=== PATIENT | female | born 2000 | race Caucasian/White ===

== ENCOUNTER 2018-12-03 18:03 | Inpatient (IN) | payer BC ==
[~2018-12-03 18:03] MED LIST: Iopamidol 300 61% 100 ML VIAL FS ONE
[2018-12-03 18:36] LABS: Bilirubin Small (Negative); Blood, Urine Moderate (Negative); Glucose, Urine (Dipstick) Negative (Negative); Leukocyte Moderate (Negative); Nitrite Negative (Negative); Protein, Urine (Dipstick) 100 mg/dL (Neg-Trace)
[2018-12-03 18:39] LABS: Clarity Cloudy (Clear); Pregnancy Test - Urine (BHCG) Negative (Negative); Pregu Control Background? CLEAR/WHITE (CLR/WHITE); Pregu Control Bar Appear? YES (CONTROL BAR)
[2018-12-03 18:42] LABS: Bacteria/HPF 2+ HPF (None Seen); WBC/HPF 21-50 HPF (0-3)
[2018-12-03 18:47] LABS: Hemoglobin 12.2 g/dL (12.0-16.0); Mean Corpuscular HGB CONC 33.4 g/dL (32.0-36.0); Mean Corpuscular Hemoglobin 29.7 pg (25.0-35.0); Mean Corpuscular Volume 88.9 fL (78.0-98.0); Mean Platelet Volume 9.5 fL (7.4-10.4); Platelet Count 161 thou/uL (130-400); RBC Distribution Width 12.3 % (11.5-14.5); Red Blood Cell (RBC) Count 4.12 mill/uL (4.00-5.20); White Blood Cell (WBC) Count 13.5 thou/uL (4.8-10.8)
[2018-12-03] MEDS ORDERED: Sodium Chloride 0.9% 100 ML ONE (18:54)
[2018-12-03] MEDS ORDERED: cefTRIAXone\\ROCEPHIN 2 GM VIAL ONE (18:54)
[2018-12-03 18:56] LABS: ALT (SGPT) 15 U/L (8-55); AST (SGOT) 16 U/L (5-34); Albumin 3.8 g/dL (3.5-5.0); Alkaline Phosphatase 82 U/L (40-100); Anion Gap 16 mmol/L (10-20); BUN (Urea Nitrogen) 13 mg/dL (7.0-18.7); Bilirubin, Total 0.7 mg/dL (0.2-1.2); Calc. Creatinine Clearance 0 mL/min (70-130); Calcium 9.9 mg/dL (7.8-10.44); Carbon Dioxide 27 mmol/L (22-29); Chloride 99 mmol/L (98-107); Estimated GFR-MDRD 64; Globulin 3.6 g/dL (2.4-3.5); Glucose 125 mg/dL (70-105); Potassium 3.5 mmol/L (3.5-5.1); Protein, Total 7.4 g/dL (6.0-8.3); Sodium 138 mmol/L (136-145)
[2018-12-03 19:20] LABS: Band 3 % (5-11); Eosinophils 1 % (0-10); Lymphocytes 4 % (28-48); MDiff Complete? YES; Monocytes 5 % (0-4); Neutrophil 87 % (31-61); Platelet Morphology Comment Appears Adequate; RBC Morphology Normal
--- NOTE | 2018-12-03 20:07 | CT ---
CT ABDOMEN WITH CONTRAST CT PELVIS WITH CONTRAST: DATE: 12/03/2018 HISTORY: 18-year-old female with abdominal pain, fever, nausea, vomiting, chills, and dysuria. COMPARISON: None available TECHNIQUE: IV injection of iodinated contrast media: administered. Oral contrast media:Not administered FINDINGS: The right kidney is ptotic and slightly malrotated. The right nephrogram is very abnormal, with exten sive striations of poor or nonenhancement interspersed with intervening regions of normal enhancement. There is mural enhancement of the right renal pelvis. No hydronephrosis. There is modera te degree of circumferential edema in the right perirenal space extending down the right lower retroperitoneum and right paracolic gutter. There is a small amount of free fluid within the pelvic c avity. There is edema following the branches of the portal vein throughout the left and right lobes of the l iver. No portal vein thrombosis. Hepatic size is at the upper limits of normal or mildly enlarged. There is pericholecystic edema. The left kidney, abdominal aorta, pancreas, adrenals, and spleen, are normal. Urinary bladder is deco mpressed. It is difficult to identify the appendix. No small bowel dilation. Lung bases are grossly clear. No pneumoperitoneum. IMPRESSION: 1) flagrant right pyelonephritis. 2) nonspecific periportal edema in the liver, suggestive of congestion. 3) pericholecystic edema. It is uncertain whether this represents the same process as the periportal edema, or represents a concomitant acute cholecystitis.
[2018-12-03] MEDS ORDERED: Ketorolac Tromethamine 30 MG/ML VIAL ONE (21:20)
[2018-12-03 22:49] VITALS: BMI 24.2
[2018-12-03] MEDS ORDERED: Ondansetron ODT 4 MG TAB SL PRN (22:53)
[2018-12-03] MEDS ORDERED: Ondansetron PF 4 MG/2 ML Vial IVP PRN (22:53)
[2018-12-03] MEDS ORDERED: Sodium Chloride 0.9% 1,000 ML IV SCH (22:53)
[2018-12-03] MEDS: traMADol HCl 50 MG TAB PO PRN (23:33)
[2018-12-03] MEDS: Acetaminophen 325 MG TAB PO PRN (23:33)
[2018-12-03] MEDS: Sodium Chloride 0.9% 1,000 ML IV SCH (23:34)
[2018-12-04] MEDS: Ketorolac Tromethamine 30 MG/ML VIAL IVP PRN ×4 (01:44→22:56)
[2018-12-04 05:59] LABS: Band 17 % (5-11); Hemoglobin 10.4 g/dL (12.0-16.0); Hypochromia SLIGHT = 6-15 cells (100X) (0-5/hpf); Lymphocytes 8 % (28-48); MDiff Complete? YES; Mean Corpuscular HGB CONC 32.3 g/dL (32.0-36.0); Mean Corpuscular Hemoglobin 30.2 pg (25.0-35.0); Mean Corpuscular Volume 93.6 fL (78.0-98.0); Mean Platelet Volume 9.3 fL (7.4-10.4); Neutrophil 75 % (31-61); Platelet Count 129 thou/uL (130-400); Platelet Morphology Comment Appears Adequate; Red Blood Cell (RBC) Count 3.45 mill/uL (4.00-5.20); White Blood Cell (WBC) Count 10.9 thou/uL (4.8-10.8)
[2018-12-04 06:00] LABS: Anion Gap 13 mmol/L (10-20); BUN (Urea Nitrogen) 9 mg/dL (7.0-18.7); Calc. Creatinine Clearance 103 mL/min (70-130); Calcium 7.6 mg/dL (7.8-10.44); Carbon Dioxide 18 mmol/L (22-29); Chloride 106 mmol/L (98-107); Estimated GFR-MDRD 88; Glucose 118 mg/dL (70-105); Potassium 3.8 mmol/L (3.5-5.1); Sodium 133 mmol/L (136-145)
[2018-12-04] MEDS: Acetaminophen 325 MG TAB PO PRN ×2 (06:06→16:00)
[2018-12-04] MEDS: traMADol HCl 50 MG TAB PO PRN ×2 (06:10→11:59)
--- NOTE | 2018-12-04 07:25 | HP ---
PRIMARY CARE DOCTOR: The patient has no PCP. CODE STATUS: Full code. TIME OF EVALUATION: 11:00 p.m. CHIEF COMPLAINT: Abdominal pain. HISTORY OF PRESENT ILLNESS: This is a 18-year-old female patient, with no significant past medical history, came to the hospital, transferred from [place] [facility] after having severe, gradually worsening back pain on the right side, radiating to the abdomen. The pain is diffuse, associated with fever, chills, nausea, and vomiting up to 5-7 times for the past two days, although the patient reported she was also having urinary symptoms for the past week. Initially, she was treated for flu and then after no improvement, she presented to the ER and was treated for sepsis. She presented with tachycardia, fever, and positive BUN. No clear triggers, no alleviating factors. REVIEW OF SYSTEMS: CONSTITUTIONAL: The patient had fever, chills, and generalized weakness. RESPIRATORY: No cough, sputum production, or shortness of breath. CARDIOVASCULAR: No chest pain or palpitation. GASTROINTESTINAL: The patient has nausea and vomiting. No diarrhea. Abdominal pain as described in the HPI. 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 GENITOURINARY: The patient has burning on urination. EXTREMITIES: No leg swelling. All other systems were reviewed and are negative except for the findings mentioned above. PAST MEDICAL HISTORY: Includes kidney stones many years ago. PAST SURGICAL HISTORY: No surgical history. PSYCHIATRIC HISTORY: Includes anxiety. FAMILY HISTORY: Reviewed and noncontributory to current presentation. ALLERGIES: NO KNOWN DRUG ALLERGIES. REPORTED MEDICATIONS: 1. Zoloft. 2. control pills. PHYSICAL EXAMINATION: VITAL SIGNS: On presentation, blood pressure 91/66, with heart rate 141, respiratory rate was 18, temperature 98.3 with oxygen saturation 100% on room air. During the admission, the blood pressure has been fluctuating, sometimes in the lower side, sometimes have improved. The last one during my stay in the room was systolic 95 with MAP of 67. The patient has not had any episode of fever after initial presentation. Antibiotics being given. The heart rate has been sustained in the 120s finally has been coming down to the 110s. CONSTITUTIONAL: The patient is alert and oriented, not in acute distress. HEENT: Eyes normal conjunctiva. Dry oral mucosa. Anicteric. No JVD. RESPIRATORY: Bilateral air entry. No rales. No wheezes. Symmetric expansion that is decreased due to abdominal pain. CARDIOVASCULAR: The patient is tachycardic. Regular rhythm. No murmurs. No gallop. No edema. ABDOMEN: Soft. Not distended. The patient has normal bowel sounds. It is tender diffusely. SKIN: Warm, intact. No pallor. No rash. No redness. Capillary refill seems to be intact. NEURO: No evidence of any new focal weakness. Cranial nerves seems to be intact. PSYCH: The patient is in good mood. No anxiety. Optimal judgment. LABORATORY DATA: EKG was reviewed. The patient has sinus tachycardia at the rate of 126. No other acute findings. Abdomen and pelvis CT was done. 1. The patient has flagrant right pyelonephritis. 2. Nonspecific periportal edema in the liver suggestive of congestion, pericholecystic edema. It is uncertain whether this represents the same process as the periportal edema or represent concomitant acute cholecystitis. Laboratory data reviewed. The patient has sodium 138, potassium 3.5, chloride 99, carbon dioxide 27, anion gap 16, BUN 13, creatinine 1.09, GFR 64, and glucose 125. Lactic acid 1.7, calcium 9.9, and total bilirubin 0.7. LFTs were negative. Troponin was negative. Serum total protein 7.4, albumin 3.8, globulin 3.6, and albumin globulin ratio is 1.1. Hematology; the patient has white count 13.5, hemoglobin 12.2, MCV 88.9, platelet count 161, neutrophils 87, and bands 3. Urine was done and was positive with white count 21-50, rbc's were 11 to 30. ASSESSMENT AND PLAN: The patient will be placed in the hospital with following medical problems. 1. Sepsis. The patient has persistent tachycardia all night long. The patient had fever. On presentation, the patient has leukocytosis, white count more than 13. The patient has received antibiotics, possible source is the urine and is Gram positive. The patient has urinary symptoms. However, in the CAT scan, there is a possibility for acute cholecystitis reported by Radiology. The antibiotic treatment that has been given is already covering this entity. However, if this is ruled in, then surgery might need to be involved. We will follow cultures, adjust as per sensitivity. 2. Urinary tract infection as seen on the urine. The patient has urinary symptoms for a couple of weeks. Treatment as above. 3. Possible acute cholecystitis needs to be ruled out. Treatment as above. 4. Intractable pain, has been improving overnight. Continue with pain management. 5. Hyperglycemia. The patient has no history of diabetes. This is likely secondary to acute distress and infection. We will monitor and treat accordingly. No need for any further intervention. 6. Right-sided pyelonephritis seen on the CAT scan, concomitant with urinary symptoms and sepsis and SIRS signs. Treatment as above. Job ID: [id number]
--- NOTE | 2018-12-04 08:24 | RAD ---
SINGLE VIEW OF THE CHEST: COMPARISON: None. HISTORY: Chest pain and shortness of breath. FINDINGS: Single view of the chest shows a normal sized cardiomediastinal silhouette. There is no evidence of c onsolidation, mass, or pleural effusion. The bones are unremarkable. IMPRESSION: No evidence of acute cardiopulmonary disease. POS: CET
[2018-12-04] MEDS: Enoxaparin Sodium 40 MG/0.4 ML SYRINGE SC SCH (09:03)
[2018-12-04] MEDS: Sodium Chloride 0.9% 1,000 ML IV SCH ×2 (09:03→16:00)
--- NOTE | 2018-12-04 09:42 | ULT ---
GALLBLADDER ULTRASOUND: HISTORY: Right upper quadrant pain. Real-time imaging of the right upper quadrant shows some sludge within the gallbladder. Gallbladder wall is very thickened measuring greater than a centimeter on some of these images. No gallstones ar e identified. The common duct is in the 6 mm range. Pancreas region appears unremarkable. The righ t kidney is not obstructed. It is of mild increased echogenicity. IMPRESSION: 1. Marked gallbladder wall thickening. Minimal sludge and no stones are identified. Common duct is upper limits at 6 mm. 2. Mild increased echogenicity to the cortex of the right kidney. No obstruction. 3. The changes of the gallbladder could certainly be on the basis of a cholecystitis. The possibili ty that this is related to liver disease would also be a consideration. Clinical correlation is adrián wang. POS: TPC
[2018-12-04] MEDS: Ampicillin/Sulbactam 1.5 GM in Sodium Chloride 0.9% 100 ML IVPB SCH ×3 (13:26→22:57)
--- NOTE | 2018-12-04 17:27 | PDOC.HOSPP ---
- Subjective Encounter Date: 12/04/18 Encounter Time: 13:00 Subjective: pt up in bed complains of pain all over and sob - Objective Vital Signs & Weight: Vital Signs (12 hours) Temp Pulse Ox 12/04/18 15:35 99.0 F 12/04/18 11:36 98.0 F 12/04/18 07:50 96 12/04/18 07:19 98.3 F Weight Admit Weight 132 lb 7.965 oz Weight 132 lb 7.965 oz Most Recent Monitor Data Heart Rate from ECG 118 NIBP 115/81 NIBP BP-Mean 92 Respiration from ECG 40 SpO2 96 I&O: 12/03/18 12/04/18 12/05/18 06:59 06:59 06:59 Intake Total 5028 Output Total 450 Balance 4578 Result Diagrams: 12/04/18 05:33 12/04/18 05:33 Hospitalist ROS - Review of Systems Respiratory: reports: shortness of breath Cardiovascular: denies: chest pain, palpitations, orthopnea, paroxysmal noc. dyspnea, edema, light headedness, other Gastrointestinal: reports: abdominal pain. denies: nausea, vomiting, diarrhea, constipation, melena, hematochezia, other Genitourinary: denies: dysuria, frequency, incontinence, hematuria, retention, other - Medication Medications: Active Medications Generic Name Dose Route Start Last Admin Trade Name Freq PRN Reason Stop Dose Admin Acetaminophen 650 mg 12/03/18 23:26 12/04/18 16:00 Tylenol PO 650 mg Q6H PRN Administration Fever/Mild Pain Enoxaparin Sodium 40 mg 12/04/18 09:00 12/04/18 09:03 Lovenox SC Not Given 0900 [facility] Ampicillin Sodium/Sulbactam 100 mls @ 200 mls/hr 12/04/18 12:00 12/04/18 17: 14 Sodium 1.5 gm/ Sodium Chloride IVPB 100 mls Q6HR PACO Administration Sodium Chloride 1,000 mls @ 75 mls/hr 12/04/18 16:00 12/04/18 16:00 Normal Saline 0.9% IV 1,000 mls .[id number] PACO Administration Ketorolac Tromethamine 30 mg 12/04/18 01:36 12/04/18 09:01 Toradol IVP 12/09/18 01:37 30 mg Q6H PRN Administration Pain Sodium Chloride 10 ml 12/04/18 09:00 12/04/18 09:02 Flush - Normal Saline IVF 10 ml Q12HR PACO Administration Sodium Chloride 10 ml 12/03/18 22:53 12/04/18 13:27 Flush - Normal Saline IVF 10 ml PRN PRN Administration Saline Flush Tramadol HCl 50 mg 12/03/18 23:26 12/04/18 11:59 Ultram PO 50 mg Q6H PRN Administration Moderate Pain (4-6) - Exam Neck: negative: supple, symmetric, no JVD, no thyromegaly, no lymphadenopathy, no carotid bruit, JVD Respiratory - other findings: decreased breath sound to right lower lung Gastrointestinal: soft, tender to palpation Gastrointestinal - other findings: all over Hosp A/P (1) Sepsis Code(s): A41.9 - SEPSIS, UNSPECIFIED ORGANISM Status: Acute (2) Pyelonephritis Code(s): N12 - TUBULO-INTERSTITIAL NEPHRITIS, NOT SPCF ACUTE OR CHRONIC Status: Acute (3) SOB (shortness of breath) Code(s): R06.02 - SHORTNESS OF BREATH Status: Acute (4) Leukocytosis Code(s): D72.829 - ELEVATED WHITE BLOOD CELL COUNT, UNSPECIFIED Status: Acute - Plan pt's ct and RUQ ultrasound sound indicates some fluid around gall bladder. she also has decreased breath sounds to her right lung and has pyelonephritis on right kidney. lfts normal. i have changed her abx to unsayn. urine cx indicates ecoli. blood cx pending. will order a IS. if her symptoms do on improve may need a HIDA scan.
[2018-12-04] MEDS ORDERED: cefTRIAXone\\ROCEPHIN 1 GM in Sodium Chloride 0.9% 100 ML IVPB SCH (19:00)
[2018-12-05] MEDS: cefTRIAXone\\ROCEPHIN 1 GM in Sodium Chloride 0.9% 100 ML IVPB SCH (01:59)
[2018-12-05] MEDS: Sodium Chloride 0.9% 1,000 ML IV SCH (02:00)
[2018-12-05] MEDS: ALPRAZolam 0.25 MG TAB PO PRN ×2 (02:40→22:14)
[2018-12-05] MEDS: Ketorolac Tromethamine 30 MG/ML VIAL IVP PRN ×2 (08:40→16:44)
[2018-12-05] MEDS: Enoxaparin Sodium 40 MG/0.4 ML SYRINGE SC SCH (08:41)
--- NOTE | 2018-12-05 11:11 | PDOC.HOSPP ---
- Subjective Encounter Date: 12/05/18 Encounter Time: 11:09 Subjective: Ms. Allen was seen today in follow-up of pyelonephritis. She says she is feeing a little better. She still continues to have soreness all over. She also has some right flank pain. - Objective Vital Signs & Weight: Vital Signs (12 hours) Temp Pulse Resp Pulse Ox 12/05/18 10:37 97.7 F 12/05/18 08:00 93 L 12/05/18 07:00 99.6 F 12/05/18 03:43 98.2 F 12/05/18 02:48 97 12/05/18 02:42 119 H 14 97 12/04/18 23:57 97.7 F Weight Admit Weight 132 lb 7.965 oz Weight 132 lb 7.965 oz Most Recent Monitor Data Heart Rate from ECG 110 NIBP 108/72 NIBP BP-Mean 84 Respiration from ECG 32 SpO2 93 I&O: 12/04/18 12/05/18 12/06/18 06:59 06:59 06:59 Intake Total 5028 3359 Output Total 450 1550 Balance 4578 1809 Result Diagrams: 12/04/18 05:33 12/04/18 05:33 Hospitalist ROS - Medication Medications: Active Medications Generic Name Dose Route Start Last Admin Trade Name Freq PRN Reason Stop Dose Admin Acetaminophen 650 mg 12/03/18 23:26 12/04/18 16:00 Tylenol PO 650 mg Q6H PRN Administration Fever/Mild Pain Alprazolam 0.25 mg 12/05/18 02:36 12/05/18 02:40 Xanax PO 0.25 mg Q12H PRN Administration Anxiety Enoxaparin Sodium 40 mg 12/04/18 09:00 12/05/18 08:41 Lovenox SC 40 mg 0900 PACO Administration Sodium Chloride 1,000 mls @ 75 mls/hr 12/04/18 16:00 12/05/18 02:00 Normal Saline 0.9% IV 1,000 mls .[id number] PACO Administration Ceftriaxone Sodium 1 gm/ 100 mls @ 200 mls/hr 12/05/18 02:00 12/05/18 01:59 Sodium Chloride IVPB 100 mls Q24HR@0200 PACO Administration Ketorolac Tromethamine 30 mg 12/04/18 01:36 12/05/18 08:40 Toradol IVP 12/09/18 01:37 30 mg Q6H PRN Administration Pain Sodium Chloride 10 ml 12/04/18 09:00 12/05/18 08:41 Flush - Normal Saline IVF 10 ml Q12HR PACO Administration Sodium Chloride 10 ml 12/03/18 22:53 12/04/18 18:04 Flush - Normal Saline IVF 10 ml PRN PRN Administration Saline Flush Tramadol HCl 50 mg 12/03/18 23:26 12/04/18 11:59 Ultram PO 50 mg Q6H PRN Administration Moderate Pain (4-6) - Exam Eye: PERRL, anicteric sclera ENT: normocephalic atraumatic, no oropharyngeal lesions Heart: RRR, no murmur, no gallops, no rubs, normal peripheral pulses Respiratory: CTAB, no wheezes, no rales, no ronchi, normal chest expansion Gastrointestinal: soft, non-tender, non-distended, normal bowel sounds, no palpable masses, no hepatomegaly, no splenomegaly Extremities: no cyanosis, no clubbing, no edema Psychiatric: normal affect, normal behavior, A&O x 3 Hosp A/P (1) Pyelonephritis Code(s): N12 - TUBULO-INTERSTITIAL NEPHRITIS, NOT SPCF ACUTE OR CHRONIC Status: Acute (2) Sepsis Code(s): A41.9 - SEPSIS, UNSPECIFIED ORGANISM Status: Acute - Plan * Acute Pyelonephritis with sepsis- she is slowly improving * Urine culture is growing E. coli which is sensitive to Rocephin- will continue * Cholecystitis is less likely. * Will continue to monitor in the hospital * Will need to ambulate
[2018-12-05] MEDS: traMADol HCl 50 MG TAB PO PRN ×2 (13:02→22:14)
[2018-12-05 18:02] LABS: Anion Gap 13 mmol/L (10-20); BUN (Urea Nitrogen) 13 mg/dL (7.0-18.7); Calc. Creatinine Clearance 103 mL/min (70-130); Calcium 8.2 mg/dL (7.8-10.44); Carbon Dioxide 18 mmol/L (22-29); Chloride 108 mmol/L (98-107); Estimated GFR-MDRD 88; Glucose 119 mg/dL (70-105); Potassium 3.7 mmol/L (3.5-5.1); Sodium 135 mmol/L (136-145)
--- NOTE | 2018-12-05 20:04 | CON ---
DATE OF CONSULTATION: 12/05/2018 HISTORY OF PRESENT ILLNESS: Tracy Allen is a 18-year-old female, who has had urinary tract symptoms for couple of weeks. She was admitted to the hospital early yesterday morning. CT scanning of her abdomen showed a very inflamed right kidney. There is some pericholecystic fluid. She subsequently was admitted with a diagnosis of pyelonephritis. E coli was isolated from the urine. Fortunately, her blood cultures are negative. She was switched to Unasyn yesterday, but switched back when sensitivities came back, the E coli was resistant to Unasyn. She did complain of a heavy feeling last night in her chest. Chest x-ray done yesterday before symptoms is unremarkable. PAST MEDICAL HISTORY: Unremarkable. FAMILY HISTORY: Negative for lung disease in early age. OBJECTIVE: VITAL SIGNS: Afebrile. Heart rate is in the one teens. Oximetry is 93% to 97%, respiratory rate is 14, blood pressure 108/72. Intake and outputs positive 1809, positive 4578 today before. HEAD AND NECK: Unremarkable. She has fine crackles of both lung bases. HEART: Regular rhythm. No S3. ABDOMEN: Nontender. EXTREMITIES: Without clubbing, cyanosis, or edema. IMPRESSION: 1. Pyelonephritis without bacteremia. 2. Probable early clinical sepsis. 3. Status post large volume resuscitation leading to her complaints of dyspnea with third-spacing, likely in her lungs and peripherally. PLAN: I would not recommend at this point giving her diuretics and she still has resting tachycardia. I met with mom and answered all of her questions. Check a chest x-ray in the morning. I suspect she will continue to improve. She says she does feel significantly better than she did on presentation. I suspect she probably has a component of ARDS with her pyelonephritis, should gradually resolve spontaneously and may not require any diuresis. Critical care time is 35 minutes. Job ID: [id number] MTDD
[2018-12-06] MEDS: cefTRIAXone\\ROCEPHIN 1 GM in Sodium Chloride 0.9% 100 ML IVPB SCH (02:54)
[2018-12-06] MEDS: Sodium Chloride 0.9% 1,000 ML IV SCH (02:55)
[2018-12-06] MEDS: Acetaminophen 325 MG TAB PO PRN ×2 (04:28→11:45)
[2018-12-06 04:58] LABS: Band 14 % (5-11); Elliptocytes SLIGHT = 2-5 cells (100X) (0-1/hpf); Hemoglobin 10.5 g/dL (12.0-16.0); Lymphocytes 5 % (28-48); MDiff Complete? YES; Mean Corpuscular HGB CONC 33.6 g/dL (32.0-36.0); Mean Corpuscular Hemoglobin 30.8 pg (25.0-35.0); Mean Corpuscular Volume 91.7 fL (78.0-98.0); Mean Platelet Volume 8.7 fL (7.4-10.4); Monocytes 8 % (0-4); Neutrophil 73 % (31-61); Platelet Count 206 thou/uL (130-400); Platelet Morphology Comment Appears Adequate; RBC Distribution Width 12.5 % (11.5-14.5); Red Blood Cell (RBC) Count 3.41 mill/uL (4.00-5.20); White Blood Cell (WBC) Count 14.1 thou/uL (4.8-10.8)
[2018-12-06 05:03] LABS: Anion Gap 12 mmol/L (10-20); BUN (Urea Nitrogen) 15 mg/dL (7.0-18.7); Calc. Creatinine Clearance 101 mL/min (70-130); Calcium 8.1 mg/dL (7.8-10.44); Carbon Dioxide 19 mmol/L (22-29); Chloride 107 mmol/L (98-107); Estimated GFR-MDRD 86; Glucose 97 mg/dL (70-105); Potassium 3.9 mmol/L (3.5-5.1); Sodium 134 mmol/L (136-145)
[2018-12-06] MEDS ORDERED: Sodium Chloride 0.9% 1,000 ML IV SCH (07:11)
[2018-12-06] MEDS ORDERED: Furosemide 20 MG/2 ML VIAL SLOW IVP SCH (07:15)
[2018-12-06] MEDS: Enoxaparin Sodium 40 MG/0.4 ML SYRINGE SC SCH (08:09)
--- NOTE | 2018-12-06 09:23 | PDOC.HOSPP ---
- Subjective Encounter Date: 12/06/18 Encounter Time: 09:21 Subjective: Ms. Allen was seen today in follow-up of Pyelonephritis due to Ecoli. She says she is beginning to feel better. She had some dyspnea last night, but is improving. She was able to eat yesterday without nausea and vomiting. - Objective Vital Signs & Weight: Vital Signs (12 hours) Temp 12/06/18 07:00 98.2 F 12/06/18 04:59 99 F 12/06/18 03:51 98.4 F 12/06/18 03:00 98.4 F 12/05/18 23:48 98.8 F Weight Admit Weight 132 lb 7.965 oz Weight 132 lb 7.965 oz Most Recent Monitor Data Heart Rate from ECG 114 NIBP 114/74 NIBP BP-Mean 87 Respiration from ECG 16 SpO2 92 I&O: 12/05/18 12/06/18 12/07/18 06:59 06:59 06:59 Intake Total 3359 1600 Output Total 1550 1050 Balance 1809 550 Result Diagrams: 12/06/18 03:59 12/06/18 03:59 Hospitalist ROS - Medication Medications: Active Medications Generic Name Dose Route Start Last Admin Trade Name Freq PRN Reason Stop Dose Admin Acetaminophen 650 mg 12/03/18 23:26 12/06/18 04:28 Tylenol PO 650 mg Q6H PRN Administration Fever/Mild Pain Alprazolam 0.25 mg 12/05/18 02:36 12/05/18 22:14 Xanax PO 0.25 mg Q12H PRN Administration Anxiety Enoxaparin Sodium 40 mg 12/04/18 09:00 12/06/18 08:09 Lovenox SC 40 mg 0900 PACO Administration Ceftriaxone Sodium 1 gm/ 100 mls @ 200 mls/hr 12/05/18 02:00 12/06/18 02:54 Sodium Chloride IVPB 100 mls Q24HR@0200 PACO Administration Ketorolac Tromethamine 30 mg 12/04/18 01:36 12/05/18 16:44 Toradol IVP 12/09/18 01:37 30 mg Q6H PRN Administration Pain Sodium Chloride 10 ml 12/04/18 09:00 12/06/18 08:09 Flush - Normal Saline IVF Not Given Q12HR PACO Sodium Chloride 10 ml 12/03/18 22:53 12/05/18 16:56 Flush - Normal Saline IVF 10 ml PRN PRN Administration Saline Flush Tramadol HCl 50 mg 12/03/18 23:26 12/05/18 22:14 Ultram PO 50 mg Q6H PRN Administration Moderate Pain (4-6) - Exam Eye: PERRL, anicteric sclera Heart: RRR, no murmur, no gallops, no rubs, normal peripheral pulses Respiratory: CTAB (but decreased breath sounds in the right base), no wheezes, no rales, no ronchi, normal chest expansion Gastrointestinal: soft, non-distended, normal bowel sounds, no palpable masses, no hepatomegaly, no splenomegaly, no bruit, no guarding, no rigidity, tender to palpation (+ right mid and lower abdominal tebderness) Extremities: no cyanosis, no clubbing, 1+ LE edema (+ mild ankle edema) Hosp A/P (1) Pyelonephritis Code(s): N12 - TUBULO-INTERSTITIAL NEPHRITIS, NOT SPCF ACUTE OR CHRONIC Status: Acute (2) Sepsis Code(s): A41.9 - SEPSIS, UNSPECIFIED ORGANISM Status: Acute - Plan * Acute Pyelonephritis with sepsis- she continues to improve * Urine culture is growing E. coli which is sensitive to Rocephin- will continue * Dyspnea- mild respiratory failure- could be mild ARDS vs. volume overload from fluid resuscitation * Echo has been ordered * Continue to ambulate
--- NOTE | 2018-12-06 12:17 | RAD ---
PORTABLE AP CHEST: Date: 12/06/18 HISTORY: ARDS. COMPARISON: 12/04/18. FINDINGS: There has been interval development of dense area of consolidation and opacity at the right lung base with interval development of blunting of the left lateral costophrenic angle and patchy parenchymal densities within the left mid lung zone and left lung base. The opacities in the mid lung zones and e ach lung base obscure the cardiac silhouette. The pulmonary vasculature is within normal limits. IMPRESSION: Interval development of parenchymal opacities in the mid lung zones and at each lung base with associ ated bilateral pleural effusions. Parenchymal opacity is much greater at the right lung base. Finding s may be related to development of bilateral multifocal pneumonia or possibly asymmetric pulmonary ed beryl with associated bilateral pleural effusions. Follow-up to complete resolution is recommended. POS: OFF
[2018-12-06] MEDS: Ketorolac Tromethamine 30 MG/ML VIAL IVP PRN (17:31)
--- NOTE | 2018-12-06 18:42 | PRG ---
DATE OF SERVICE: 12/06/2018 SUBJECTIVE: Tracy Statum says she is feeling better today. She still has a heavy feeling in her chest. OBJECTIVE: VITAL SIGNS: Heart rate is 98, blood pressure 134/91, and respiratory rate is in the high 20s. LUNGS: This morning, lungs remarkable for crackles on both lung bases. HEART: Regular rhythm. ABDOMEN: Soft. She does not have the flank tenderness. She is having her right abdominal exam is less tender than yesterday. LABORATORY DATA: White count 14.1, hemoglobin 10.5, platelets 206,000. Sodium 134, potassium 3.9, chloride 107, bicarb 19, BUN 15, and creatinine 0.84. Anion gap is 8. Chest radiograph shows patchy bilateral alveolar infiltrates. IMPRESSION: Pyelonephritis with acute respiratory distress syndrome, it is mild. She will probably do well with just one dose of Lasix today. This clinically does not clear that a picture of pneumonia. I suspect with diuretics. She will improve significantly. We will continue to follow. Job ID: [id number]
[2018-12-06] MEDS: traMADol HCl 50 MG TAB PO PRN (22:27)
[2018-12-06] MEDS: ALPRAZolam 0.25 MG TAB PO PRN (22:27)
[2018-12-07] MEDS: Ketorolac Tromethamine 30 MG/ML VIAL IVP PRN ×2 (02:19→22:10)
[2018-12-07] MEDS: Acetaminophen 325 MG TAB PO PRN ×2 (02:23→19:54)
[2018-12-07] MEDS: cefTRIAXone\\ROCEPHIN 1 GM in Sodium Chloride 0.9% 100 ML IVPB SCH (02:24)
[2018-12-07 05:38] LABS: Anion Gap 13 mmol/L (10-20); BUN (Urea Nitrogen) 14 mg/dL (7.0-18.7); Calc. Creatinine Clearance 117 mL/min (70-130); Calcium 7.6 mg/dL (7.8-10.44); Carbon Dioxide 21 mmol/L (22-29); Chloride 104 mmol/L (98-107); Estimated GFR-MDRD Greater than 90; Glucose 84 mg/dL (70-105); Potassium 3.1 mmol/L (3.5-5.1); Sodium 135 mmol/L (136-145)
[2018-12-07 06:12] LABS: Band 16 % (5-11); Hemoglobin 9.4 g/dL (12.0-16.0); Lymphocytes 17 % (28-48); MDiff Complete? YES; Mean Corpuscular HGB CONC 33.9 g/dL (32.0-36.0); Mean Corpuscular Hemoglobin 30.9 pg (25.0-35.0); Mean Corpuscular Volume 91.2 fL (78.0-98.0); Mean Platelet Volume 8.9 fL (7.4-10.4); Monocytes 4 % (0-4); Neutrophil 63 % (31-61); Platelet Count 171 thou/uL (130-400); Platelet Morphology Comment Appears Adequate; RBC Distribution Width 12.5 % (11.5-14.5); Red Blood Cell (RBC) Count 3.05 mill/uL (4.00-5.20); White Blood Cell (WBC) Count 11.8 thou/uL (4.8-10.8)
[2018-12-07] MEDS ORDERED: Furosemide 20 MG/2 ML VIAL SLOW IVP SCH (08:00)
[2018-12-07] MEDS ORDERED: Potassium Chloride 20 MEQ TAB PO SCH ×2 (09:15→15:45)
[2018-12-07] MEDS: Enoxaparin Sodium 40 MG/0.4 ML SYRINGE SC SCH (09:54)
--- NOTE | 2018-12-07 15:28 | PDOC.HOSPP ---
- Subjective Encounter Date: 12/07/18 Encounter Time: 09:40 Subjective: Ms. Allen was seen today in follow-up of Pyelonephritis. She says she still feels very tired, and notes dyspnea when she walks a few steps in the room. The abdominal pain has improved, and she has been able to keep all her meals down yesterday, and this morning. - Objective Vital Signs & Weight: Vital Signs (12 hours) Temp Pulse Ox 12/07/18 08:00 97 12/07/18 07:17 96.5 F L 12/07/18 03:42 99.6 F Weight Admit Weight 132 lb 7.965 oz Weight 2.123 oz Most Recent Monitor Data Heart Rate from ECG 81 NIBP 122/89 NIBP BP-Mean 100 Respiration from ECG 34 SpO2 96 I&O: 12/06/18 12/07/18 12/08/18 06:59 06:59 06:59 Intake Total 1600 775 Output Total 1050 1700 Balance 550 -925 Result Diagrams: 12/07/18 04:37 12/07/18 04:37 Hospitalist ROS - Medication Medications: Active Medications Generic Name Dose Route Start Last Admin Trade Name Freq PRN Reason Stop Dose Admin Acetaminophen 650 mg 12/03/18 23:26 12/07/18 02:23 Tylenol PO 650 mg Q6H PRN Administration Fever/Mild Pain Alprazolam 0.25 mg 12/05/18 02:36 12/06/18 22:27 Xanax PO 0.25 mg Q12H PRN Administration Anxiety Enoxaparin Sodium 40 mg 12/04/18 09:00 12/07/18 09:54 Lovenox SC 40 mg 0900 PACO Administration Ceftriaxone Sodium 1 gm/ 100 mls @ 200 mls/hr 12/05/18 02:00 12/07/18 02:24 Sodium Chloride IVPB 100 mls Q24HR@0200 PACO Administration Ketorolac Tromethamine 30 mg 12/04/18 01:36 12/07/18 02:19 Toradol IVP 12/09/18 01:37 30 mg Q6H PRN Administration Pain Sodium Chloride 10 ml 12/04/18 09:00 12/07/18 09:54 Flush - Normal Saline IVF 10 ml Q12HR PACO Administration Sodium Chloride 10 ml 12/03/18 22:53 12/05/18 16:56 Flush - Normal Saline IVF 10 ml PRN PRN Administration Saline Flush Tramadol HCl 50 mg 12/03/18 23:26 12/06/18 22:27 Ultram PO 50 mg Q6H PRN Administration Moderate Pain (4-6) - Exam Eye: PERRL, anicteric sclera ENT: normocephalic atraumatic, no oropharyngeal lesions Heart: RRR, no murmur, no gallops, no rubs, normal peripheral pulses Respiratory: no wheezes (but coarse breath sounds some rales at the bases), no ronchi, normal chest expansion Gastrointestinal: soft, non-tender, non-distended, normal bowel sounds, no palpable masses, no hepatomegaly, no splenomegaly, no bruit, no guarding Extremities: no cyanosis, no clubbing, no edema Psychiatric: normal affect, normal behavior, A&O x 3 Hosp A/P (1) Pyelonephritis Code(s): N12 - TUBULO-INTERSTITIAL NEPHRITIS, NOT SPCF ACUTE OR CHRONIC Status: Acute (2) Sepsis Code(s): A41.9 - SEPSIS, UNSPECIFIED ORGANISM Status: Acute - Plan * Acute Pyelonephritis with sepsis- she continues with slow improvement * Urine culture is growing E. coli which is sensitive to Rocephin- will continue * Mild ARDS- continue oxygen supplementation, and encourage ambulation, and incentive spirometry * Will continue to monitor in the hospital
[2018-12-07] MEDS ORDERED: Sodium Chloride 0.65% Nasal 44 ML BOT EA NARE PRN (15:44)
--- NOTE | 2018-12-07 16:21 | PRG ---
DATE OF SERVICE: 12/07/2018 SERVICE: Pulmonary Medicine. INTERVAL HISTORY: The patient is doing fine from respiratory standpoint. She had a little bit of a coughing yesterday and woke up twice last night with dyspnea. That being said, seems to be slightly improved as the day is gone by today. She denies any fevers or chills. There were no significant overnight events otherwise. The sputum that she brings up is a frothy white color and perhaps has a touch of a pale yellow character to it. PHYSICAL EXAMINATION: VITAL SIGNS: Afebrile with a T-max overnight of 100.4. Pulse 81, blood pressure 122/89, respirations 34, saturation 96% on 3 L nasal cannula. GENERAL: The patient is awake and alert, in no apparent distress. LUNGS: Decent air entry. Crackles are present. HEART: Normal rate and regular. ABDOMEN: Soft, nontender, and nondistended. Bowel sounds are positive. MUSCULOSKELETAL: No cyanosis or clubbing. There is 1+ pitting in the bilateral lower extremities. NEUROLOGIC: Grossly nonfocal. LABORATORY DATA: WBC 11.8, hemoglobin 9.4 and downtrending, platelets 171,000. Basic metabolic profile is unremarkable except for potassium of 3.1. Sodium is uptrending to 135. Previous LFTs and lipase were unremarkable. Urinalysis was positive for pyuria. Significant gram-negative rods were identified, which turned out to be E coli. This is a fairly sensitive species. Blood cultures x2 are negative. IMAGIN. Echocardiogram shows normal ejection fraction with trace valvular abnormalities. Minimally elevated right ventricular systolic pressure is present. 2. Chest x-ray demonstrates multifocal infiltrates and bilateral effusions, consistent with volume overload. The apical regions are spared. This has the appearance of cardiogenic pulmonary edema. ARDS, however, cannot be entirely excluded. Cardiac silhouette is generous, though it is an AP film. 3. CT of the abdomen and pelvis demonstrates florid pyelonephritis. ASSESSMENT: 1. Sepsis without end-organ damage. 2. Acute hypoxic respiratory failure, hopefully secondary to volume resuscitation. 3. Bilateral pulmonary infiltrates and pleural effusions. DISCUSSION AND PLAN: We will continue to diurese the patient down to euvolemia. I will give her a total of 80 mEq of potassium today. I will check a magnesium tomorrow morning. We will repeat chest x-ray in the morning. Her oxygen requirement seemed to be improving slightly. As such, no changes to our current management will be performed. We will continue her antibiotics directed at her E coli, which was identified in the urine. Job ID: [id number]
[2018-12-07] MEDS: ALPRAZolam 0.25 MG TAB PO PRN (22:10)
[2018-12-08] MEDS: cefTRIAXone\\ROCEPHIN 1 GM in Sodium Chloride 0.9% 100 ML IVPB SCH (02:43)
[2018-12-08] MEDS: traMADol HCl 50 MG TAB PO PRN (02:54)
[2018-12-08 07:08] LABS: #Basophils 0.1 thou/uL (0.0-0.2); #Eosinphils 0.3 thou/uL (0.0-0.7); #Lymphocytes 2.2 thou/uL (1.20-3.40); #Monocytes 0.8 thou/uL (0.11-0.59); #Neutrophils 9.7 thou/uL (1.40-6.50); %Basophils 0.6 % (0.0-1.0); %Eosinophils 2.3 % (0.0-10.0); %Monocytes 6.3 % (0.0-4.0); %Neutrophils 73.8 % (31.0-61.0); Hemoglobin 10.2 g/dL (12.0-16.0); Mean Corpuscular HGB CONC 33.2 g/dL (32.0-36.0); Mean Corpuscular Hemoglobin 30.4 pg (25.0-35.0); Mean Corpuscular Volume 91.5 fL (78.0-98.0); Mean Platelet Volume 7.8 fL (7.4-10.4); Platelet Count 237 thou/uL (130-400); RBC Distribution Width 12.6 % (11.5-14.5); Red Blood Cell (RBC) Count 3.36 mill/uL (4.00-5.20); White Blood Cell (WBC) Count 13.1 thou/uL (4.8-10.8)
[2018-12-08 07:27] LABS: Anion Gap 14 mmol/L (10-20); BUN (Urea Nitrogen) 12 mg/dL (7.0-18.7); Calc. Creatinine Clearance 122 mL/min (70-130); Calcium 7.6 mg/dL (7.8-10.44); Carbon Dioxide 20 mmol/L (22-29); Chloride 105 mmol/L (98-107); Estimated GFR-MDRD Greater than 90; Glucose 78 mg/dL (70-105); Magnesium 1.7 mg/dL (1.7-2.2); Potassium 3.8 mmol/L (3.5-5.1); Sodium 135 mmol/L (136-145)
[2018-12-08] MEDS ORDERED: Magnesium Sulfate 4 GM in Sodium Chloride 0.9% 250 ML 250 ML IVPB SCH (08:45)
[2018-12-08] MEDS ORDERED: Potassium Chloride 20 MEQ TAB PO SCH (08:45)
[2018-12-08] MEDS ORDERED: Furosemide 20 MG/2 ML VIAL SLOW IVP SCH (08:45)
[2018-12-08] MEDS: Enoxaparin Sodium 40 MG/0.4 ML SYRINGE SC SCH (09:18)
--- NOTE | 2018-12-08 09:55 | RAD ---
CHEST TWO VIEWS: INDICATIONS: Follow up infiltrates. COMPARISON: 12/06/2018 FINDINGS: Bibasilar infiltrates and bilateral effusions are again noted. There may be some mild improvement in the density and extent of the infiltrates when compared to the portable film of 12/06/2018, although comparison is suboptimal due to differences in technique and the previous was a portable projection. IMPRESSION: Persistent bibasilar infiltrates and bilateral effusions. POS: [facility]
--- NOTE | 2018-12-08 10:07 | PRG ---
DATE OF SERVICE: 12/08/2018 SERVICE: Pulmonary Medicine. INTERVAL HISTORY: The patient is doing better from respiratory standpoint. She is on less oxygen. Her saturations are being maintained at 97%. That being said, she woke up with a coughing fit yesterday night. It took her breath for period of time, but she has settled back down fairly comfortably. This morning, she had additional coughing fit. She actually got choked up on some mucus, which induced a vomiting spell, but she denies having any specific nausea. She has a good appetite still. Otherwise, there are no significant overnight events. PHYSICAL EXAMINATION: VITAL SIGNS: Afebrile. Pulse 80, blood pressure 117/92, respirations 30, and saturation 97% on 1.5 L nasal cannula. GENERAL: The patient is awake and alert, in no apparent distress. LUNGS: Decent air entry with dependent crackles noted. HEART: Normal rate and regular. ABDOMEN: Soft, nontender, and nondistended. Bowel sounds are positive. MUSCULOSKELETAL: No cyanosis or clubbing. There is trace pitting in bilateral lower extremities, which seems to be slightly improved. NEUROLOGIC: Grossly nonfocal. LABORATORY DATA: WBC 13.1, hemoglobin 10.2, platelets 237,000. Sodium 135. Basic metabolic profile is otherwise unremarkable. Potassium is improved to 3.8, and magnesium remains at 1.7. Urinalysis is positive for E. coli, growing fairly sensitive organism. IMAGING: Chest x-ray demonstrates significant improvement in aeration throughout bilateral lung welch. I cannot see the bilateral diaphragms. There is less pleural effusion present. ASSESSMENT: 1. Acute hypoxic respiratory failure, improving. 2. Sepsis without end-organ damage, resolving. 3. Urinary tract infection/pyelonephritis secondary to Escherichia coli, improving. 4. Bilateral pulmonary infiltrates and pleural effusions, improving. DISCUSSION AND PLAN: My suspicion is that her hypoxic failure secondary to volume resuscitation. Clinically and radiographically, she seems to be making improvements over the last 24 to 48 hours. I will give her an additional dose of potassium, magnesium, and Lasix today. I will put her briefly on a course of CPAP to see whether or not we can help mobilize fluid from the lungs. Pulmonary/Critical Care will follow along. She should remain in this location until she has less difficulty mobilizing. Job ID: [id number]
[2018-12-08] MEDS: Ketorolac Tromethamine 30 MG/ML VIAL IVP PRN ×2 (15:23→22:15)
[2018-12-08 15:55] VITALS: BP 121/61
--- NOTE | 2018-12-08 17:40 | PDOC.HOSPP ---
- Subjective Encounter Date: 12/08/18 Encounter Time: 10:00 Subjective: Ms. Allen was seen today in follow-up of pyelonephritis with sepsis. She is still feeling weak. She also continues to have difficulty breathing. - Objective Vital Signs & Weight: Vital Signs (12 hours) Temp Pulse Pulse Pulse Resp BP BP 12/08/18 15:00 97.9 F 12/08/18 13:30 81 88 121/61 134/98 H 12/08/18 11:00 98.3 F 12/08/18 09:30 89 26 H 12/08/18 07:41 12/08/18 07:00 98.1 F Pulse Ox 12/08/18 15:00 12/08/18 13:30 12/08/18 11:00 12/08/18 09:30 99 12/08/18 07:41 97 12/08/18 07:00 Weight Admit Weight 132 lb 7.965 oz Weight 132 lb 6 oz Most Recent Monitor Data Heart Rate from ECG 97 NIBP 106/76 NIBP BP-Mean 86 Respiration from ECG 26 SpO2 100 I&O: 12/07/18 12/08/18 12/09/18 06:59 06:59 06:59 Intake Total 775 2240 Output Total 1700 2200 Balance -925 40 Result Diagrams: 12/08/18 07:00 12/08/18 07:00 Hospitalist ROS - Medication Medications: Active Medications Generic Name Dose Route Start Last Admin Trade Name Freq PRN Reason Stop Dose Admin Acetaminophen 650 mg 12/03/18 23:26 12/07/18 19:54 Tylenol PO 650 mg Q6H PRN Administration Fever/Mild Pain Alprazolam 0.25 mg 12/05/18 02:36 12/07/18 22:10 Xanax PO 0.25 mg Q12H PRN Administration Anxiety Enoxaparin Sodium 40 mg 12/04/18 09:00 12/08/18 09:18 Lovenox SC 40 mg 0900 PACO Administration Ceftriaxone Sodium 1 gm/ 100 mls @ 200 mls/hr 12/05/18 02:00 12/08/18 02:43 Sodium Chloride IVPB 100 mls Q24HR@0200 PACO Administration Ketorolac Tromethamine 30 mg 12/04/18 01:36 12/08/18 15:23 Toradol IVP 12/09/18 01:37 30 mg Q6H PRN Administration Pain Sodium Chloride 10 ml 12/04/18 09:00 12/08/18 09:21 Flush - Normal Saline IVF 10 ml Q12HR PACO Administration Sodium Chloride 10 ml 12/03/18 22:53 12/05/18 16:56 Flush - Normal Saline IVF 10 ml PRN PRN Administration Saline Flush Sodium Chloride 1 ml 12/07/18 15:44 12/07/18 16:18 [place] Nasal [place] 0.65% EA NARE 1 spray TIDPRN PRN Administration Nasal Congestion Tramadol HCl 50 mg 12/03/18 23:26 12/08/18 02:54 Ultram PO 50 mg Q6H PRN Administration Moderate Pain (4-6) - Exam Eye: PERRL, anicteric sclera Heart: RRR, no murmur, no gallops, no rubs, normal peripheral pulses Respiratory: CTAB, no wheezes, no rales, no ronchi, normal chest expansion, no tachypnea, normal percussion Gastrointestinal: soft, non-tender, non-distended, normal bowel sounds, no palpable masses, no hepatomegaly Extremities: no cyanosis, no clubbing, 1+ LE edema (trace lower extremity edema) Hosp A/P (1) Pyelonephritis Code(s): N12 - TUBULO-INTERSTITIAL NEPHRITIS, NOT SPCF ACUTE OR CHRONIC Status: Acute (2) Sepsis Code(s): A41.9 - SEPSIS, UNSPECIFIED ORGANISM Status: Acute - Plan * Acute Pyelonephritis with sepsis- she continues with slow improvement * Continue Rocephin * Volume overload from fluid resuscitation- continue Lasix as needed and incentive spirometry, mobilization * Will continue to monitor in the hospital
[2018-12-08] MEDS: ALPRAZolam 0.25 MG TAB PO PRN (19:41)
[2018-12-09] MEDS: cefTRIAXone\\ROCEPHIN 1 GM in Sodium Chloride 0.9% 100 ML IVPB SCH (02:14)
[2018-12-09 04:20] LABS: #Eosinphils 0.3 thou/uL (0.0-0.7); #Lymphocytes 2.3 thou/uL (1.20-3.40); #Neutrophils 8.1 thou/uL (1.40-6.50); %Basophils 0.3 % (0.0-1.0); %Eosinophils 2.4 % (0.0-10.0); %Lymphocytes 19.9 % (28.0-48.0); %Monocytes 8.7 % (0.0-4.0); %Neutrophils 68.8 % (31.0-61.0); Hemoglobin 10.5 g/dL (12.0-16.0); Mean Corpuscular HGB CONC 32.9 g/dL (32.0-36.0); Mean Corpuscular Hemoglobin 30.1 pg (25.0-35.0); Mean Corpuscular Volume 91.5 fL (78.0-98.0); Mean Platelet Volume 7.9 fL (7.4-10.4); Platelet Count 271 thou/uL (130-400); RBC Distribution Width 12.4 % (11.5-14.5); White Blood Cell (WBC) Count 11.8 thou/uL (4.8-10.8)
[2018-12-09 04:41] LABS: Anion Gap 12 mmol/L (10-20); BUN (Urea Nitrogen) 9 mg/dL (7.0-18.7); Calc. Creatinine Clearance 133 mL/min (70-130); Calcium 7.9 mg/dL (7.8-10.44); Carbon Dioxide 24 mmol/L (22-29); Chloride 102 mmol/L (98-107); Estimated GFR-MDRD Greater than 90; Glucose 89 mg/dL (70-105); Potassium 4.7 mmol/L (3.5-5.1); Sodium 133 mmol/L (136-145)
[2018-12-09] MEDS: Enoxaparin Sodium 40 MG/0.4 ML SYRINGE SC SCH (09:14)
--- NOTE | 2018-12-09 10:28 | PDOC.HOSPP ---
- Subjective Encounter Date: 12/09/18 Encounter Time: 10:25 Subjective: Ms. Allen was seen today in follow-up. She is feeling better.l She is breathing better, and denies pain. - Objective Vital Signs & Weight: Vital Signs (12 hours) Temp Pulse Ox 12/09/18 08:29 98 12/09/18 07:28 98.7 F 12/09/18 07:18 97 12/09/18 03:32 99 12/09/18 03:00 99.2 F 12/09/18 02:21 98 12/09/18 00:00 99 12/08/18 23:00 98.2 F 12/08/18 22:46 97 Weight Admit Weight 132 lb 7.965 oz Weight 132 lb 5 oz Most Recent Monitor Data Heart Rate from ECG 103 NIBP 116/79 NIBP BP-Mean 91 Respiration from ECG 24 SpO2 96 I&O: 12/08/18 12/09/18 12/10/18 06:59 06:59 06:59 Intake Total 2240 2055 Output Total 2200 4000 Balance 40 -1945 Result Diagrams: 12/09/18 04:07 12/09/18 04:07 Hospitalist ROS - Medication Medications: Active Medications Generic Name Dose Route Start Last Admin Trade Name Freq PRN Reason Stop Dose Admin Acetaminophen 650 mg 12/03/18 23:26 12/07/18 19:54 Tylenol PO 650 mg Q6H PRN Administration Fever/Mild Pain Alprazolam 0.25 mg 12/05/18 02:36 12/08/18 19:41 Xanax PO 0.25 mg Q12H PRN Administration Anxiety Enoxaparin Sodium 40 mg 12/04/18 09:00 12/09/18 09:14 Lovenox SC Not Given 0900 PACO Ceftriaxone Sodium 1 gm/ 100 mls @ 200 mls/hr 12/05/18 02:00 12/09/18 02:14 Sodium Chloride IVPB 100 mls Q24HR@0200 PACO Administration Sodium Chloride 10 ml 12/04/18 09:00 12/08/18 19:41 Flush - Normal Saline IVF 10 ml Q12HR PACO Administration Sodium Chloride 10 ml 12/03/18 22:53 12/05/18 16:56 Flush - Normal Saline IVF 10 ml PRN PRN Administration Saline Flush Sodium Chloride 1 ml 12/07/18 15:44 12/07/18 16:18 [place] Nasal [place] 0.65% EA NARE 1 spray TIDPRN PRN Administration Nasal Congestion Tramadol HCl 50 mg 12/03/18 23:26 12/08/18 02:54 Ultram PO 50 mg Q6H PRN Administration Moderate Pain (4-6) - Exam Eye: PERRL, anicteric sclera Neck: supple Heart: RRR, no murmur, no gallops, no rubs, normal peripheral pulses Respiratory: CTAB, no wheezes, no rales, no ronchi, normal chest expansion, no tachypnea, normal percussion Gastrointestinal: soft, non-tender, non-distended, normal bowel sounds, no palpable masses, no hepatomegaly, no splenomegaly Extremities: no cyanosis, no clubbing, no edema Hosp A/P (1) Pyelonephritis Code(s): N12 - TUBULO-INTERSTITIAL NEPHRITIS, NOT SPCF ACUTE OR CHRONIC Status: Acute (2) Sepsis Code(s): A41.9 - SEPSIS, UNSPECIFIED ORGANISM Status: Acute - Plan * Acute Pyelonephritis with sepsis- improving * Continue Rocephin * She has diuresed quite well following CPAP, and Lasix * I suspect she is approaching discharge soon.
[2018-12-09 11:20] VITALS: TEMP 98.6
[2018-12-09] MEDS ORDERED: Ciprofloxacin 500 MG TAB PO SCH ×2 (11:45→20:00)
--- NOTE | 2018-12-09 12:17 | PRG ---
DATE OF SERVICE: 12/09/2018 SERVICE: Pulmonary Medicine. INTERVAL HISTORY: The patient is doing absolutely wonderful from respiratory standpoint. She has been weaned off oxygen and is currently on room air. Her cough is improving. She is not having anymore paroxysms that result in vomiting. Otherwise, she is returning to her usual state of health and has no specific complaints. PHYSICAL EXAMINATION: VITAL SIGNS: Afebrile, pulse 82, blood pressure 113/75, respirations 29, saturation 94%, currently on room air. GENERAL: The patient is awake and alert, in no apparent distress. LUNGS: Decent air entry. Dependent crackles are much improved. HEART: Normal rate, regular. ABDOMEN: Soft, nontender, and nondistended. Bowel sounds are positive. MUSCULOSKELETAL: No cyanosis or clubbing. No pitting in the bilateral lower extremities. NEUROLOGIC: Grossly nonfocal. LABORATORY DATA: WBC 11.8, hemoglobin 10.5, platelets 271,000. Sodium 133. Basic metabolic profile is otherwise unremarkable. E. coli is growing in the urine. This is a mostly sensitive organism. Blood cultures x2 remain unremarkable. ASSESSMENT: 1. Acute hypoxic respiratory failure, resolved. 2. Sepsis without end-organ damage, resolved. 3. Urinary tract infection/pyelonephritis secondary to Escherichia coli, improving. 4. Bilateral pulmonary infiltrates and pleural effusions, resolving. DISCUSSION AND PLAN: The patient is stable for transition out of the IMCU to the medical unit. We will convert her antibiotics over to p.o. She will need to complete a 14-day course. She will require a repeat chest x-ray in the outpatient setting in roughly 4 to 6 weeks to verify that her infiltrates and effusions have resolved. If they have not, additional investigation may be warranted. I have counseled her to avoid any type of irritants to lung including vapor, oils, and cigarette smoke/dusts. She can be transitioned to the medical unit. When she arrives there, I will sign off. Job ID: [id number]
--- NOTE | 2018-12-09 19:14 | DIS ---
DATE OF ADMISSION: 12/03/2018 DATE OF DISCHARGE: 12/09/2018 DISCHARGE DISPOSITION: Home. DISCHARGE DIAGNOSES: 1. Pyelonephritis. 2. Sepsis. DISCHARGE MEDICATIONS: Include, 1. Ciprofloxacin 500 mg twice a day for 9 days. 2. Sertraline 125 mg daily. 3. Norethindrone/estradiol. IMAGING DONE DURING THE HOSPITAL STAY: The patient had a CT scan of the abdomen and pelvis, in which there was evidence of right pyelonephritis, which was flagrant and there was some pericholecystic edema also demonstrated. The patient had an abdominal ultrasound showing marked gallbladder wall thickening. There was some minimal sludge, but no stones were identified. The common duct was at the upper limits of normal. The patient had an echocardiogram, in which the LVEF was estimated at 50% to 55%. There was some mitral regurgitation. CODE STATUS: Full code. ALLERGIES: NO KNOWN DRUG ALLERGIES. HOSPITAL COURSE: Ms. Allen is a 18-year-old female, who presented to the emergency room with severe right flank pain as well as abdominal pain, nausea and vomiting. She was evaluated in the ER and found to have pyelonephritis. She also had severe sepsis associated with this, requiring her to be treated primarily in the IMCU during the course of most of her hospital stay. She was given IV fluid resuscitation as well as IV antibiotics. Urine culture grew Escherichia coli, which was sensitive to both cephalosporins as well as quinolones. She improved over the course of the next few days. Her hospital course was complicated by some volume overload from the fluid resuscitation, this required IV Lasix as well as a CPAP in order to help mobilize the fluids. She improved over the course of the next few days and was subsequently able to be discharged home. There was some concern for possible cholecystitis, but clinically she did not have any findings associated with this. Her appetite improved as well as the abdominal pain, which was more radiation from the right flank pain and was clinically stable. Job ID: [id number]
== END 2018-12-09 13:42 | disposition home or self-care (01) | DRG 871 ==
LOC: SCSER 18:03 → IMCU/EMU 22:08
PROVIDERS: ADMIT Hospitalist; ATTEND Hospitalist
PROC: 5A09357 Assistance with Respiratory Ventilation, Less than 24 Consecutive Hours, Continuous Positive Airway Pressure (ICD-10-PCS; principal; 2018-12-08)
DX: A41.51 Sepsis due to Escherichia coli [E. coli] (principal); J96.01 Acute respiratory failure with hypoxia; N10 Acute pyelonephritis; Z16.11 Resistance to penicillins; J90 Pleural effusion, not elsewhere classified; F41.9 Anxiety disorder, unspecified; R73.9 Hyperglycemia, unspecified; R65.20 Severe sepsis without septic shock; R91.8 Other nonspecific abnormal finding of lung field; E87.70 Fluid overload, unspecified; Z79.899 Other long term (current) drug therapy; Z79.3 Long term (current) use of hormonal contraceptives
CPT/HCPCS: 36415; 36416; 71045; 71046; 74177; 76705; 80048; 80053; 81003; 81015; 81025; 83605; 83690; 83735; 84484; 85025; 87040; 87077; 87086; 87186; 93005; 93306; 94640; 94660; 96361; 96365; 96366; 96367; 96375; J0295; J0696; J1650; J1885; J1940; J3370; J3475; J3490; J7050; J7620; Q9967